=== PATIENT | female | born 1985 | race Caucasian/White ===

== ENCOUNTER → 2019-08-24 | Outpatient (CLI) | payer BC ==
--- NOTE | 2019-08-24 16:38 | KCIC ---
PROCEDURE: LUMBAR SPINE 2-3V STUDY DATE: 08/24/2019 CLINICAL INDICATION / HISTORY: Reason: LBP, RT LUMBAR RADICULOPATHY S/P HYSTERECTOMY 1 YR AGO / Spl. Instructions: / History: . TECHNIQUE: AP, lateral and coned-down lateral views of the lumbar spine in the upright position were obtained COMPARISON: No relevant comparisons currently available. FINDINGS: Five lumbar segments are identified. Lumbar vertebral bodies are normal in height and alignment. Disc height shows mild narrowing of the lumbosacral junction. Mild facet hypertrophic changes present at L5-S1 as well. No fracture or aggressive osseous lesions. Pedicles are intact. IMPRESSION: No fracture seen. Electronically signed by: Herberth Rothman MD (08/24/2019 4:35 PM) [id number]
== END | disposition home or self-care (01) ==
LOC: KCIC 14:08
PROVIDERS: ATTEND Nurse Practitioner Gerontology
DX: M47.817 Spondylosis without myelopathy or radiculopathy, lumbosacral region (principal); M54.16 Radiculopathy, lumbar region; M48.07 Spinal stenosis, lumbosacral region; Z90.710 Acquired absence of both cervix and uterus
CPT/HCPCS: 72100

== ENCOUNTER → 2019-09-07 | Outpatient (CLI) | payer BC ==
--- NOTE | 2019-09-07 15:57 | KCIC ---
EXAM: Lumbar spine MRI without contrast. HISTORY: Lower back pain and right lower extremity radiculopathy. TECHNIQUE: Multiplanar, multisequence magnetic resonance imaging of the lumbar spine was performed without contrast. COMPARISON: Radiographs dated 08/24/2019. FINDINGS: There is mild retrolisthesis of L5 on S1. There is degenerative endplate remodeling with disc space narrowing and disc desiccation at this level. There is no suspicious osseous lesion. There is no fracture. The conus terminates at L1-L2. At L1-L2, L2-L3, L3-L4 and L4-L5, there is no stenosis. At L5-S1, there is a disc bulge and endplate remodeling. There is mild bilateral facet arthropathy. There is mild bilateral foraminal stenosis. IMPRESSION: 1. Degenerative change at L5-S1, with associated bilateral foraminal stenosis. 2. No acute finding. Electronically signed by: Hortencia Gibbs MD (09/07/2019 3:54 PM) [id number]
== END ==
LOC: KCIC MRI 14:17
PROVIDERS: ATTEND Nurse Practitioner Gerontology
DX: M47.27 Other spondylosis with radiculopathy, lumbosacral region (principal); M48.07 Spinal stenosis, lumbosacral region
CPT/HCPCS: 72148

== ENCOUNTER → 2019-09-29 | Outpatient (CLI) | payer BC ==
[~2019-09-29] MED LIST: CETI10TA24 PO; IOHEXOL 180 MG/ML 10 ML VIAL. ONE; methylPREDNISolone ACETATE 40 MG/ML VIAL. ONE; methylPREDNISolone ACETATE 80 MG/ML VIAL. ONE
--- NOTE | 2019-09-29 10:26 | PDOC2 ---
INITIAL PAIN CONSULT DATE OF SERVICE: DOS: DATE: 09/29/19 TIME: 10:19 CHIEF COMPLAINT: Chief Complaint: Low back and right lower extremity pain HISTORY OF PRESENT ILLNESS: 34-year-old female presents with history of pain low back right lower extremity status post laparoscopic-assisted vaginal hysterectomy in September 2018. Patient ports no pain prior to the procedure but afterwards had significant pain in the low back and the right leg is getting worse but over the past 6 weeks or so. Patient reports he is tried physical therapy also does exercises and she is very active and athletic but the pain is limiting her significantly. Patient reports general exercise and stretching as well as physical therapy in the past and not been significantly decreasing the pain she is also tried Aleve ibuprofen Advil etc. xcjj-[id number] medications which have not helped significantly as well. Patient ports pain wakes her release 3-4 times a night does not affect her bowel bladder control it does affect her ability to walk with significant fatigability the right lower extremity with no overt motor loss however. Patient reports pain is constant sharp throbbing stabbing tingling with numbness radiation the right lower extremity aching and cramping at times in the low back rating the posterior gluteus posterior thigh posterior calf 7 anterior thigh and anterior lower leg but mostly in the posterior aspect into the foot involving all the toes with some numbness as well. Patient rates her disability him 0-10 10 being the worst is a 7 with an ill responsibilities recreation social activity 9 with occupation and sexual [place] 6 with self-care and 8 with life support activities. Patient did have MRI scan of the lumbar spine showing degenerative change at L5-S1 with associated bilateral foraminal stenosis with disc bulge and endplate remodeling. PAST MEDICAL HISTORY: PMH: No major medical conditions previous surgery as noted. PREVIOUS SURGERIES: Past Surgical Hx: Hysterectomy LAVH 2018, cholecystectomy 2008, left knee surgery 2000, right rotator cuff repair 2005 CURRENT MEDICATIONS: Current Meds: Active Scripts Medications Dose Route/Sig Max Daily Dose Days Date Category Zyrtec (Cetirizine Hcl) 10 Mg Tablet 1 Tab PO DAILY 09/29/19 Reported ALLERGIES; Allergies: Coded Allergies: No Known Drug Allergies (Unverified , 09/29/19) FAMILY HISTORY: Family Hx: No major medical conditions that she is aware of SOCIAL HISTORY: Social Hx: Patient does not smoke does not use any illegal illicit or recreational drugs drinks about 2 to 3 cans of beer a week on average is single lives locally with her significant other and [facility] 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 REVIEW OF SYSTEMS: ROS: Review of systems positive for sinus muscles present illness all systems reviewed otherwise negative complete full well-documented on patient's chart. PHYSICAL EXAM: VS: Blood pressure 123/67 pulse 76 respiration 16 temperature 98.4 F height is 5 feet 6 inches weight is 1 4 0 pounds PE: PHYSICAL EXAMINATION: GENERAL: The patient is awake, alert, oriented, appropriate, very pleasant demeanor HEENT: Shows normocephalic, atraumatic. Extraocular movements are intact and symmetrical. Oral cavity: Mucous membranes moist and pink. Dentition is intact. NECK: Shows anterior throat supple without palpable lymphadenopathy noted. Swallow reflex symmetrical. CHEST: Shows normal on inspection. Breath sounds are clear bilaterally no rales rhonchi or wheezes auscultated. HEART: Shows S1, S2 clear. No murmurs auscultated. ABDOMEN: Soft, nontender, nondistended. No palpable organomegaly is noted. No rebound or guarding demonstrated. BACK: Shows spine grossly in the midline. Normal-appearing cervical lordotic curvature. There is slightly increased thoracic kyphosis, some minor flattening of the lumbar lordotic curvature. Lumbar paraspinous muscles show symmetrical on inspection, on palpation shows some moderate tenderness diffusely throughout the upper, middle and lower distribution of the paraspinous muscles bilaterally but without specific trigger points, without radiation of pain. The patient has good rotational motion of the lumbar spine, both laterally as well as extension and flexion without significant difficulty. No tenderness over the spinous processes, sacrum or sacroiliac regions. EXTREMITIES: Lower extremities show deep tendon reflexes 2+ in the patellar and tendo calcaneus tendons. Motor exam is 4 on a scale of 5 with right dorsiflexion, extension, quadriceps and hamstring flexion and 5/5 on the left. Peripheral pulses are 1+ posterior tibial. No peripheral edema is noted bilaterally. Lower extremities are warm and dry to touch, equal in color and appearance. Straight leg raise noted to be positive on the right about 40 degrees, left side is []. Gaenslen's and Larry's maneuvers are negative as well. The patient is able to stand, stand on her toes without significant difficulty or loss of balance, is walking with a normal-appearing gait for short distance in the office today not use any assistive devices such as canes or walkers to ambulate. SKIN: Shows warm and dry, good turgor. No edema. No sores, rashes or bruising throughout. IMPRESSION: Impression: Impression: This is a 34-year-old female with approximate 1 year history of low back right lower extremity pain worse over the past several weeks following LAVH surgery. MRI scan lumbar spine as noted Plan: Options discussed with the patient including conservative management physical therapies interventional techniques and she would like to pursue interventional techniques we discussed a lumbar epidural steroid injection using descriptions as well as anatomical models to describe the procedure. Risks were then discussed including but not limited to bleeding infection possibility of epidural hematoma and subsequent neurological compromise dural puncture headache spinal cord and or nerve damage side effects of steroid medication and poor results regarding pain control. patient understands wishes to proceed. Procedure is lumbar epidural steroid injection under local anesthetic using sterile prep and drape at the L5-S1 level using C-arm fluoroscopic guidance in both AP and lateral views medications injected is 120 mg Depo-Medrol + 10 mL preservative-free normal saline and 2 mL Isovue for contrast- condition at discharge is stable patient tolerated procedure well had no complications. ALENA GROVES MD Sep 29, 2019 10:26
== END | disposition home or self-care (01) ==
LOC: PNCL 08:56
PROVIDERS: ATTEND Anesthesiology
DX: M54.5 Low back pain (principal); M48.07 Spinal stenosis, lumbosacral region; M79.661 Pain in right lower leg; Z90.710 Acquired absence of both cervix and uterus; Z90.49 Acquired absence of other specified parts of digestive tract; Z98.890 Other specified postprocedural states; Z79.899 Other long term (current) drug therapy
CPT/HCPCS: 62323; J1030; J1040; Q9965

== ENCOUNTER → 2019-11-03 | Outpatient (CLI) | payer BC ==
[~2019-11-03] MED LIST changes: -CETI10TA24 PO; +CETI10TA74 PO; +IOHEXOL 180 MG/ML 10 ML VIAL. IT ONE; -IOHEXOL 180 MG/ML 10 ML VIAL. ONE; +LIDOCAINE 1% Multi-Dose 20 ML VIAL. ID ONE; -methylPREDNISolone ACETATE 40 MG/ML VIAL. ONE; -methylPREDNISolone ACETATE 80 MG/ML VIAL. ONE
--- NOTE | 2019-11-03 15:18 | KCIC ---
Lumbar Myelogram History: Lumbar radiculopathy, right radiculopathy, low back pain Technique: Patient was informed of the risks of the procedure to include pain, infection, bleeding, seizures, nerve root injury, and allergic reaction to the contrast. All questions were answered. Patient signed a written consent form for a lumbar myelogram. The patient was placed in a prone oblique position on the fluoroscopy table. External site of the lower back was prepped and draped in the usual sterile fashion. Betadine was utilized for cleansing solution. 1% lidocaine was utilized for local anesthesia at the anticipated site of puncture right L4-5 interlaminar space. A 19-gauge guiding needle was advanced into the soft tissues. Through the guiding needle, a 25 gauge Brandon needle was advanced until there was return of cerebral spinal fluid. Approximately 15 cc of Omnipaque 180 were then injected during fluoroscopic visualization. The needles were removed. Fluoroscopic spot images including standing images were acquired of the lumbar spine to include flexion and extension lateral views. The patient was then transferred to the CT department for CT examination of the lumbar spine. There were no immediate complications. Fluoroscopy time: 1 minute 24 seconds, 17 images Findings: There is no evidence of myelographic block. There is mild to moderate posterior L5-S1 degenerative disc disease. There is negligible posterior subluxation L5 relative to S1 reduced with flexion. There has been cholecystectomy. Impression: 1. There is negligible posterior subluxation L5 relative to S1 reduced with flexion. There is L5-S1 degenerative disc disease. Electronically signed by: Dar Das MD (11/03/2019 3:16 PM) [id number]
--- NOTE | 2019-11-03 15:29 | KCIC ---
CT lumbar spine exam History:Lumbar radiculopathy, right radiculopathy, low back pain Technique: CT imaging was performed of the lumbar spine after injection for lumbar myelogram. Multiplanar reconstruction images are submitted. Exposure: One or more of the following individualized dose reduction techniques were utilized for this examination: 1. Automated exposure control 2. Adjustment of the mA and/or kV according to patient size 3. Use of iterative reconstruction technique. Comparison: August 08, 2019 MRI lumbar spine exam Findings: Lumbar vertebral body stature is maintained. There is very minimal posterior subluxation L5 relative to S1. There is mild to moderate narrowing of the L5-S1 intervertebral disc space greater posteriorly. Conus terminates at L1-L2. There is very mild extent of contrast into the epidural space such as at L3-4 and L4-5. There is very mild lumbar levoscoliosis. There is some gas in the anterior sacral iliac joints bilaterally, also some sclerosis of the iliac bones adjacent to the sacroiliac joints bilaterally. T12-L1: Spinal canal and neural foramina are adequate. L1-L2: Spinal canal and neural foramina are adequate. There is mild facet hypertrophic change. L2-L3: There is qnbc-zt-zvodtwka facet degenerative change and mild buckling of the ligamentum flavum. Neural foramina and spinal canal are adequate. L3-L4: There is moderate bilateral facet hypertrophic change and mild buckling of the ligamentum flavum. Spinal canal and neural foramina are adequate. L4-L5: There is moderate facet degenerative change and mild buckling of the ligamentum flavum. Spinal canal and neural foramina are adequate. L5-S1: There is fairly severe facet degenerative change. Right facet osteophyte contributes to mild narrowing of the far right lateral recess, just lateral to the descending right S1 nerve root. Otherwise spinal canal is adequate. Neural foramina are overall adequate. Impression: 1. There is multilevel lumbar facet degenerative change greatest at L5-S1, facet osteophyte on the right at L5-S1 near the lateral surface of the descending right S1 nerve root in the far right lateral recess. There is L5-S1 degenerative disc disease greater posteriorly. There is very minimal posterior subluxation L5 relative to S1. Electronically signed by: Dar Das MD (11/03/2019 3:26 PM) [id number]
== END | disposition home or self-care (01) ==
LOC: KCIC 12:22
PROVIDERS: ATTEND Neurological Surgery
DX: M51.17 Intervertebral disc disorders with radiculopathy, lumbosacral region (principal); M25.78 Osteophyte, vertebrae; Z79.899 Other long term (current) drug therapy
CPT/HCPCS: 62304; 72132; J3490; Q9965

== ENCOUNTER → 2019-11-11 | Outpatient (CLI) | payer BC ==
[~2019-11-11] MED LIST changes: -IOHEXOL 180 MG/ML 10 ML VIAL. IT ONE; -LIDOCAINE 1% Multi-Dose 20 ML VIAL. ID ONE
--- NOTE | 2019-11-11 14:30 | RAD ---
Examination: BONE SCAN LIMITED History: Reason: LOW BACK PAIN FOR 2 MONTHS / Spl. Instructions: / History: Comparison/Correlation: CT lumbar myelogram 11/03/2019, MRI lumbar spine 09/07/2019, CT chest with contrast 03/02/2009 Findings: 25 mCi technetium 99m MDP was intravenously administered for purposes of limited bone scintigraphy. Images performed from the level of the skull to the knees. Bilateral oblique and lateral views of the lower thoracic spine level to the joint levels also was performed. Uptake of radiotracer is normal. No abnormal distribution of radiotracer to suggest osteoblastic process. Relative photopenia involving the left second and third ribs posteriorly is noted. Photopenic involving the right second rib posteriorly noted. Kidneys and urinary bladder are seen. Impression: No abnormal uptake involving the spine or about the pelvis to suggest osteoblastic or osteolytic process. Relative photopenia of the right second and third ribs posteriorly noted. Correlate with surgical history at these levels. Correlate with chest x-ray for further assessment. Electronically signed by: Emory Sandoval MD (11/11/2019 2:27 PM) [id number]
== END | disposition home or self-care (01) ==
LOC: NM 10:12
PROVIDERS: ATTEND Neurological Surgery
DX: S32.039A Unspecified fracture of third lumbar vertebra, initial encounter for closed fracture (principal); X58.XXXA Exposure to other specified factors, initial encounter; Y93.89 Activity, other specified; Y92.89 Other specified places as the place of occurrence of the external cause; Y99.8 Other external cause status
CPT/HCPCS: 78300; A9503

== ENCOUNTER → 2019-12-20 | Outpatient (CLI) | payer BC ==
[~2019-12-20] MED LIST changes: +DOCU-109 PO; +HYDR-2763 PO; +METH-38 PO
[2019-12-20 15:55] LABS: BASO % 1 % (0-3); EOS # 0.2 x10^3/uL (0.0-0.7); EOS % 3 % (0-3); HEMATOCRIT 43.3 % (36.0-47.0); HEMOGLOBIN 14.5 g/dL (12.0-15.5); LYMPH # 1.6 x10^3/uL (1.0-4.8); LYMPH % 26 % (24-48); MEAN CORPUSCULAR HEMOGLOBIN 33 pg (25-35); MEAN CORPUSCULAR HGB CONC 34 g/dL (31-37); MEAN CORPUSCULAR VOLUME 98 fL (79-100); MONO # 0.4 x10^3/uL (0.0-1.1); MONO % 6 % (0-9); NEUT # 4.1 x10^3/uL (1.8-7.7); NEUT % 65 % (31-73); PLATELET COUNT 227 x10^3/uL (140-400); RED BLOOD COUNT 4.44 x10^6/uL (3.50-5.40); RED CELL DISTRIBUTION WIDTH 12.6 % (11.5-14.5); WHITE BLOOD COUNT 6.3 x10^3/uL (4.0-11.0)
[2019-12-20 16:11] LABS: ALBUMIN 4.3 g/dL (3.4-5.0); ALBUMIN/GLOBULIN RATIO 1.2 (1.0-1.7); CALCIUM 9.2 mg/dL (8.5-10.1); CREATININE 0.7 mg/dL (0.6-1.0); GFR 96.4; POTASSIUM 4.1 mmol/L (3.5-5.1); TOTAL BILIRUBIN 0.2 mg/dL (0.2-1.0); TOTAL PROTEIN 7.9 g/dL (6.4-8.2)
== END ==
LOC: SURGPAT 13:20
PROVIDERS: ATTEND Neurological Surgery
DX: Z01.818 Encounter for other preprocedural examination (principal); M48.062 Spinal stenosis, lumbar region with neurogenic claudication; M54.17 Radiculopathy, lumbosacral region; Z20.828 Contact with and (suspected) exposure to other viral communicable diseases
CPT/HCPCS: 80053; 85025; 87641; U0003

== ENCOUNTER 2019-12-27 08:06 | Day surgery (SDC) | payer BC ==
--- NOTE | 2019-12-25 00:06 | PREOP HP ---
DATE OF SERVICE: 12/27/2019 PREOPERATIVE HISTORY AND PHYSICAL HISTORY OF PRESENT ILLNESS: The patient is a pleasant 34-year-old who continues to have low back pain and pain that radiates into her left buttock, posterior thigh and lower leg and foot. She says the problem continues to slowly worsen. The problem became severe in July or August of this year. There is no inciting event. She says her pain is a 10/10 today, but normally it is an 8/10. Activity increases her pain. Sitting helps. She is taking [place] and Advil. She is taking physical therapy and lumbar epidural steroid injections. She has been ambulating with a cane. PAST MEDICAL HISTORY: None noted. PAST SURGICAL HISTORY: Left knee surgery, right rotator cuff surgery, hysterectomy in 2019, and cholecystectomy in 2006. SOCIAL HISTORY: She is employed as a homemaker. Single. Denies tobacco use. Drinks alcohol 1-2 times per week. Drinks coffee and soda. ALLERGIES: ATIVAN. CURRENT MEDICATIONS: Motrin, Zyrtec and Hatfield. REVIEW OF SYSTEMS: A 12-point review of systems was obtained and is noncontributory except that mentioned above. PHYSICAL EXAMINATION: NEUROSURGERY EXAMINATION: GENERAL APPEARANCE: Alert, pleasant, no acute distress. HEAD: Normocephalic and atraumatic. SKIN: Warm and dry. MUSCULOSKELETAL: Lumbar paraspinal muscle bulk is normal, restricted range of motion of the lumbar spine, [id number] tenderness of the lower lumbar spine with palpation, normal range of motion of the lower extremities bilaterally. EXTREMITIES: No clubbing, cyanosis or edema. NEUROLOGIC: Alert and oriented x 3, normal recent and remote memory, strength 5/5 in bilateral lower extremities. Sensory is intact to light touch in lower extremities bilaterally. Reflexes are present and symmetric in bilateral lower extremities, negative straight leg raising bilaterally, ambulating with a cane. IMAGING: I reviewed her lumbar myelogram. On that study, there is a lateral recess and foraminal narrowing at L5-S1 on the right. ASSESSMENT/ PLAN: I think her symptoms are related to the problems at L5-S1 on the right. I recommend a lumbar microdecompression surgery. She has failed conservative treatment. I spoke with her about surgery including the technique, risks as well as expected postoperative course. She understands. We will make the arrangements. KO PENALOZA MD DR: MANISH/steve JOB#: [id number] / [id number] DEVIN
[~2019-12-27] VITALS: Ht 167.6 cm; Wt 65.6 kg
[~2019-12-27 08:06] MED LIST changes: +BACITRACIN 50,000 UNIT in IV NORMAL SALINE 1000ML BAG 1,000 ML IRR ONE; -DOCU-109 PO; +GELATIN SPONGE SIZE 100. ONE; -HYDR-2763 PO; +HYDROmorphone 2 MG/ML VIAL IV PRN; +KETOROLAC 60 MG/2 ML VIAL. ONE; +LIDOCAINE 1% PF 2 ML VIAL. ID PRN; +LIDOCAINE 1%/EPI 1:100,000 20 ML VIAL. ONE; -METH-38 PO; +MORPHINE SULFATE 2 MG/ML VIAL. IV PRN; +ONDANSETRON PF 4 MG/2 ML VIAL. IV PRN; +THROMBIN TOPICAL 20,000 UNIT SPRAY.SYRN KIT TP ONE; +fentaNYL PF VIAL 100 MCG/2 ML VIAL IV PRN
[2019-12-27] MEDS ORDERED: HYDR-2763 PO (08:49)
[2019-12-27] MEDS: IV RINGERS,LACTATED 1000ML 1,000 ML IV SCH ×3 (08:53→16:57)
[2019-12-27] MEDS ORDERED: SCOPOLAMINE 1.5MG PATCH. TD ONE (10:05)
[2019-12-27] MEDS ORDERED: REMIFENTANIL 2 MG VIAL. IV ONE (11:06)
[2019-12-27] MEDS ORDERED: MIDAZOLAM HCL/PF 2 MG/2 ML VIAL. ONE (11:06)
[2019-12-27] MEDS ORDERED: fentaNYL PF VIAL 250 MCG/5 ML VIAL ONE (11:06)
[2019-12-27] MEDS ORDERED: DEXAMETHASONE SOD PHOS 4 MG/ML VIAL ONE (11:07)
[2019-12-27] MEDS ORDERED: DESFLURANE > 120 MINUTES IH ONE (11:07)
[2019-12-27] MEDS ORDERED: PROPOFOL 10 MG/ML (20ML) VIAL. IV ONE (11:07)
[2019-12-27] MEDS ORDERED: LIDOCAINE 2% PF 5 ML VIAL. ONE (11:07)
[2019-12-27] MEDS ORDERED: ONDANSETRON PF 4 MG/2 ML VIAL. ONE (11:07)
[2019-12-27] MEDS ORDERED: ROCURONIUM 50 MG/5 ML VIAL. ONE (11:07)
[2019-12-27] MEDS ORDERED: NEOSTIGMINE METHYLSULFATE 5 MG/5 ML SYRINGE. ONE (14:10)
[2019-12-27] MEDS ORDERED: GLYCOPYRROLATE 1 MG/5 ML VIAL. ONE (14:10)
[2019-12-27] MEDS ORDERED: METH-38 PO (14:26)
[2019-12-27] MEDS ORDERED: DOCU-109 PO (14:26)
--- NOTE | 2019-12-27 14:28 | DISCH ---
DISCHARGE INSTRUCTIONS Condition on Discharge Condition on Discharge: Stable Activity After Discharge Activity Instructions for Disc: Activity as tolerated, Avoid exertion Other activity instructions: no driving for a week Bathing Instructions: Shower-keep dressing dry, No Tub Bath until see Lifting Instructions after Dis: No heavy lifting, No pulling or pushing, Do not lift >10 pounds Diet after Discharge Additional Diet Restrictions: resume home diet Wound Incision Care Wound/Incision Care: Ice to area for comfort Other wound/incision instructi: may remove dressing in 48 hours if dry then may shower Contacting the after DC Call your doctor for: Concerns you may have Follow-Up Follow up with: Dr. Penaloza's nurse in 2 weeks [phone] KO PENALOZA MD Dec 27, 2019 14:28
--- NOTE | 2019-12-27 14:28 | OP ---
DATE OF SURGERY: 12/27/2019 PREOPERATIVE DIAGNOSES: Lateral recess stenosis at L5-S1, right with severe right lumbar radiculopathy. POSTOPERATIVE DIAGNOSES: Lateral recess stenosis, L5-S1, right with severe right lumbar radiculopathy. OPERATION PERFORMED: Hemilaminotomy with microdecompression of dura and nerve root, right L5-S1. The operation was done with EMG monitoring, SSEP monitoring, fluoroscopy, microscopic dissection. SURGEON: Chris Penaloza M.D. ORTHOTICS ASSISTANT: CARLOS Poole, assisted with the surgery. She assisted with the exposure, the microdecompression as well as closure. OPERATIVE INDICATIONS: The patient has developed severe intractable back and right leg pain, which failed conservative measures. On imaging studies, there were few findings and I did perform a lumbar myelogram and there was evidence of a degree of lateral stenosis at L5-S1 from dorsal bone spurs. She also had a small retrolisthesis at that level as well as pars defect. I felt that this was because of the severe nature of her pain, I felt that it was worthwhile to explore this region and decompress the S1 nerve root. She understood the surgery and risks, she understood the technique, she wished to go ahead. DESCRIPTION OF PROCEDURE: Following general endotracheal anesthesia, the patient was positioned prone on a Catracho frame. Her lumbar region was prepped and draped in the standard fashion. KENDRA hose and AV impulse boots were applied for DVT prophylaxis. The microscope was draped. Fluoroscopy was draped and brought into field. Monitoring was established. Ancef 2 grams was given less than 1 hour prior to initiation of the surgery. Using fluoroscopic guidance, incision was made directly over the L5-S1 interspace. I dissected down through skin and subcutaneous tissue, reflected the paraspinal muscles, placed a [place] microdisk retractor. I brought in the microscope. Using the high speed air drill, I burred down a generous hemilaminotomy. I then drilled inferiorly and gradually trimmed away the thickened ligamentum flavum and first exposed the traversing sacral roots and then working laterally I found the S1 root was quite an early takeoff and paralleled the dura and just after I entered the foramen, there was large bone spurs, which were compressing down on the root. I gently drilled the bone over these and I used a micro Kerrison's as well as the 2.5 mm Fehling Kerrison to trim this away and fully open the neural foramen. I followed this out quite far. I assured myself it was quite free. I did palpate the disc. It was firm, no discectomy was warranted. There were a large number of epidural veins surrounding the root and I trimmed this away and freed up the S1 root. After fully decompressing the entire region, I did use small amounts of bone wax as well as bipolar cautery to maintain excellent hemostasis throughout the surgery. I also had an excellent decompression. I irrigated with antibiotic solution. I closed the wound with absorbable suture. The skin was closed with 4-0 subcuticular stitch. I felt the surgery went very well. CHRIS PENALOZA MD DR: MANISH/steve JOB#: [id number] / [id number] DEVIN
[2019-12-27] MEDS ORDERED: HYDROcodone/APAP 7.5/325MG 1 TAB TABLET PO PRN (14:45)
[2019-12-27] MEDS ORDERED: PROCHLORPERAZINE 10 MG/2 ML VIAL. ONE (15:10)
[2019-12-27] MEDS ORDERED: fentaNYL PF VIAL 100 MCG/2 ML VIAL ONE (15:11)
[2019-12-27] MEDS: PROCHLORPERAZINE 10 MG/2 ML VIAL. IV PRN ×2 (15:14→15:52)
[2019-12-27] MEDS: fentaNYL PF VIAL 100 MCG/2 ML VIAL IV PRN ×2 (15:14→15:22)
[2019-12-27] MEDS ORDERED: PROMETHAZINE 12.5 MG TABLET. PO ONE (16:30)
[2019-12-27 16:51] VITALS: BP 122/65
--- NOTE | 2019-12-30 15:08 | PATHOLOGY ---
[facility] Accession Number: [id number] . 01 Material submitted: . vertebral column - LUMBAR DECOMPRESSION . 01 Clinical history: . LUMBAR STENOSIS, RADICULOPATHY . 02 Diagnosis: Segments of fibrocartilaginous and fibroadipose tissue and bone, lumbar decompression: - Degenerative changes of fibrocartilaginous tissue. (JPM:[facility] 12/30/2019) [facility] 12/30/2019 1313 Local . 02 Comment: There is no evidence of an acute inflammatory process or malignancy. (JPM:[facility] 12/30/2019) . 02 Electronically signed: . Jacob York MD, Pathologist NPI- [id number] . 01 Gross description: . The specimen is received in formalin, labeled "Veronica Barba, lumbar decompression". Received are multiple segments of fortune-velásquez gritty tissue admixed with fragments of bone measuring 4.0 x 2.8 x 1.1 cm in aggregate dimensions. The specimen is submitted representatively in cassette A1, following light decalcification. ([facility]; 12/29/2019) QA/[facility] 12/30/2019 1226 Local . 02 Pathologist provided ICD-10: M51.36 . 02 CPT . 302342, [id number] Specimen Comment: A courtesy copy of this report has been sent to [phone], [phone] Specimen Comment: [id number] Specimen Comment: Report sent to / DR CORDERO Performed at: 01 [facility] [address], [place] [id number] MD Avinash Wilder MD Phone: [phone] Performed at: 02 [facility] [id number] MD Jacob York MD Phone: [phone]
== END 2019-12-27 17:50 | disposition home or self-care (01) ==
LOC: SURG 08:06
PROVIDERS: ATTEND Neurological Surgery
DX: M54.16 Radiculopathy, lumbar region (principal); M48.061 Spinal stenosis, lumbar region without neurogenic claudication; Z90.49 Acquired absence of other specified parts of digestive tract; Z90.710 Acquired absence of both cervix and uterus; Z79.899 Other long term (current) drug therapy; Z98.890 Other specified postprocedural states; Z72.89 Other problems related to lifestyle; Z88.8 Allergy status to other drugs, medicaments and biological substances
CPT/HCPCS: 63030; 76000; 88304; 88311; 97116; 97162; 97530; A7015; J0690; J0780; J1100; J1885; J2250; J2405; J2704; J2710; J3010; J3490; J7030; J7120; Q0169